=== PATIENT | female | born 1995 | race Caucasian/White ===

== ENCOUNTER 2017-09-28 11:57 | Emergency (ER) | payer OTHER | END 2017-09-28 13:36 | disposition home or self-care (01) | LOC: E/R 11:57 | DX: H66.91 Otitis media, unspecified, right ear (principal); J20.9 Acute bronchitis, unspecified | CPT/HCPCS: 99283; Z7502 ==

== ENCOUNTER 2018-01-04 18:05 | Emergency (ER) | payer OTHER | END 2018-01-04 19:30 | disposition home or self-care (01) | LOC: E/R 19:30 → FTE 18:05 | DX: J06.9 Acute upper respiratory infection, unspecified (principal); H60.90 Unspecified otitis externa, unspecified ear | CPT/HCPCS: 99283; Z7502 ==

== ENCOUNTER 2018-06-13 18:26 | Emergency (ER) | payer OTHER ==
[2018-06-13] MEDS ORDERED: LIDOCAINE 1% (MDV) 10 ML INJ INFIL (19:29)
[2018-06-13] MEDS: LIDOCAINE 1% (MDV) 20 ML INJ SC (19:33)
[2018-06-13] MEDS: DIPHTH/TET/ACEL PERTUSS (ADULT) 0.5 ML VIAL IM* (20:08)
== END 2018-06-13 20:17 | disposition home or self-care (01) ==
LOC: FTE 18:26
DX: S61.411A Laceration without foreign body of right hand, initial encounter (principal); W25.XXXA Contact with sharp glass, initial encounter; Y92.9 Unspecified place or not applicable; Z23 Encounter for immunization
CPT/HCPCS: 12002; 73130-RT; 90471; 90715; 99283-25

== ENCOUNTER 2018-08-13 15:34 | Emergency (ER) | payer OTHER | END 2018-08-13 16:32 | disposition home or self-care (01) | LOC: FTE 15:34 | DX: J02.9 Acute pharyngitis, unspecified (principal) | CPT/HCPCS: 99283; Z7502 ==